=== PATIENT | female | born 1990 | race Caucasian/White ===

== ENCOUNTER 2022-03-09 00:38 | Emergency (ER) | payer OTHER ==
[2022-03-09 01:13] LABS: BILIRUBIN,URINE 1+ (NEGATIVE); CLARITY,URINE CLEAR; COLOR,URINE YELLOW; GLUCOSE, URINE (UA) NEGATIVE (NEGATIVE); KETONES,URINE TRACE (NEGATIVE); LEUKOCYTE ESTERASE ,URINE TRACE (NEGATIVE); NITRITE,URINE NEGATIVE (NEGATIVE); PH,URINE 6.5 (5-9); PROTEIN,URINE TRACE (NEGATIVE)
--- NOTE | 2022-03-09 01:13 | ED General ---
General Chief Complaint: Dizziness/Syncope Stated Complaint: PASSED OUT TWICE WHILE TAKING SHOWER Nursing Triage Note: PT AMB TO [facility] 7 WITH SPOUSE WITH C/O SYNCOPAL EPSISODE X2 ABOUT 45 MIN AGO WHILE TAKING A SHOWER. PT STATES SHE STARTED GAGGING AND FEELING NAUSOUS AND WEAK AND HE TOOK HER TO THE BEDROOM. PT STATES SHE NEVER FULLY BLACKED OUT Source of Information: Patient, Spouse (TRIES TO DO ALL TALKING FOR PT) History of Present Illness Date Seen by Provider: Mar 09, 2022 Time Seen by Provider: 00:53 Initial Comments PT ARRIVES VIA POV FROM HOME IN [place] WITH PT AND WERE IN SHOWER AND SHE PASSED OUT OR ALMOST PASSED OUT TWICE--BACK TO BACK- HE CAUGHT HER, NO INJURY BRIEF DIZZINESS AND NAUSEA IMMEDIATELY BEFORE IT HAPPENED PT SAT DOWN, DRANK WATER AND ATE JELLY FELT FINE AFTER SHE SAT DOWN AND FEELS FINE NOW NO HISTORY OF SIMILAR NO CHEST PAIN NO PALPITATIONS NO SHORTNESS OF BREATH NO VOMITING OR DIARRHEA NO ABDOMINAL PAIN NO HEADACHE NO PARESTHESIAS OR MOTOR DEFICITS NO PAIN ANYWHERE NO FEVER OR RECENT ILLNESS, NO COUGH, ETC. PT HAS MORBID OBESITY AND PCOS AND ELEVATED BLOOD SUGAR HAS GLUCOMETER AT HOME AND CHECKED IT 3 TIMES--126, 129 AND 130 WERE READINGS. PT HAS HAD GASTRIC SLEEVE SURGERY 11/2018 PT WAS STARTED ON [place] 1 MONTH AGO FOR PCOS AND ELEVATED GLUCOSE STATES SHE HAS LOST 30 LBS IN THE LAST MONTH HER ONLY INTAKE TODAY HAS BEEN: 2 SLICES OF FELIZ FOR BREAKFAST FEW BITES OF GROUND BEEF AND RICE FOR LUNCH 1/2 SLICE PIZZA FOR DINNER AROUND 2100 HAS BEEN DRINKING WATER TODAY VOIDING NORMALLY AND NO DIFFICULTY URINATING. LMP--2020. NO CONTROL. HAS NOT DONE ANY HOME TESTS. STATES SHE RARELY HAS PERIODS DUE TO PCOS PCP:DR. MARSHALL Allergies and Home Medications Allergies Coded Allergies: No Known Drug Allergies (Unverified , 03/09/22) Review of Systems Review of Systems Constitutional: see HPI EENTM: no symptoms reported Respiratory: no symptoms reported Cardiovascular: no symptoms reported Gastrointestinal: see HPI Genitourinary: no symptoms reported Musculoskeletal: no symptoms reported Skin: no symptoms reported Psychiatric/Neurological: No Symptoms Reported Hematologic/Lymphatic: No Symptoms Reported Immunological/Allergic: no symptoms reported Past Rwjixlc-[id number]-Xtahcm Hx Patient Social History Tobacco Use?: No Substance use?: No Alcohol Use?: Yes Alcohol type: Wine Alcohol Frequency: Rarely Pt feels they are or have been: No Immunizations Up To Date First/Initial COVID19 Vaccinat: JANUARY 2021 Second COVID19 Vaccination Michael: MARCH 2021 COVID19 Vaccine Motor And Chassis Inspector: SUMANTH Past Medical History Surgery/Hospitalization HX: PCOS Surgeries: Yes (GASTRIC SLEEVE 11/2018) Abdominal, Appendectomy Respiratory: No Cardiac: No Neurological: No : No Reproductive Disorders: Yes Female Reproductive Disorders: Menstrual Problems, Polycystic Ovarian Dis Genitourinary: No Gastrointestinal: No (S/P APPY AND GASTRIC SLEEVE) Musculoskeletal: No Endocrine: Yes (MORBID OBESITY, PCOS WITH ELEVATED BLOOD SUGAR) HEENT: No Cancer: No Psychosocial: No Integumentary: No Blood Disorders: No Physical Exam Vital Signs Vital Signs - First Documented 03/09/22 00:54 Temp 37.0 Pulse 87 Resp 18 B/P (MAP) 120/83 (95) Capillary Refill : Height, Weight, BMI Height: '" Weight: lbs. oz. kg; BMI Method: General Appearance: No Apparent Distress, WD/WN, Other (SITTING UP SMILING, DOES NOT APPEAR ILL OR TO BE IN ANY DISCOMFORT OR DISTRESS) HEENT: Normal ENT Inspection Neck: Normal Inspection Respiratory: Normal Breath Sounds, No Accessory Muscle Use, No Respiratory Distress Cardiovascular: Regular Rate, Rhythm, No Edema, No Murmur Back: No CVA Tenderness Extremity: Normal Inspection Neurologic/Psychiatric: Alert, Oriented x3, No Motor/Sensory Deficits, Normal Mood/Affect, career and guidance counselor II-XII Norm as Tested; No Abnormal Cerebellar Tests Skin: Normal Color, Warm/Dry, Tattoos/Piercings Progress/Results/Core Measures Suspected Sepsis SIRS Temperature: Pulse: 87 Respiratory Rate: 18 Laboratory Tests 03/09/22 01:15: White Blood Count 7.5 Blood Pressure 120 /83 Mean: 95 Laboratory Tests 03/09/22 01:15: Creatinine 0.76, Platelet Count 215, Total Bilirubin 0.5 Results/Orders Lab Results Laboratory Tests Test 03/09/22 00:49 03/09/22 01:05 03/09/22 01:15 Range/Units Glucometer 123 H 70-110 MG/DL Urine Color YELLOW Urine Clarity CLEAR Urine pH 6.5 5-9 Urine Specific [place] 1.020 1.016-1.022 Urine Protein TRACE H NEGATIVE Urine Glucose (UA) NEGATIVE NEGATIVE Urine Ketones TRACE H NEGATIVE Urine Nitrite NEGATIVE NEGATIVE Urine Bilirubin 1+ H NEGATIVE Urine Urobilinogen >=8.0 < = 1.0 MG/DL Urine Leukocyte Esterase TRACE H NEGATIVE Urine RBC (Auto) NEGATIVE NEGATIVE Urine RBC 2-5 H /HPF Urine WBC 5-10 H /HPF Urine Squamous Epithelial Cells 0-2 /HPF Urine Crystals NONE /LPF Urine Bacteria MODERATE H /HPF Urine Casts NONE /LPF Urine Mucus SMALL H /LPF Urine Culture Indicated YES Urine Opiates Screen NEGATIVE NEGATIVE Urine Oxycodone Screen NEGATIVE NEGATIVE Urine Methadone Screen NEGATIVE NEGATIVE Urine Propoxyphene Screen NEGATIVE NEGATIVE Urine Barbiturates Screen NEGATIVE NEGATIVE Ur Tricyclic Antidepressants Screen NEGATIVE NEGATIVE Urine Phencyclidine Screen NEGATIVE NEGATIVE Urine Amphetamines Screen NEGATIVE NEGATIVE Urine Methamphetamines Screen NEGATIVE NEGATIVE Urine Benzodiazepines Screen NEGATIVE NEGATIVE Urine Cocaine Screen NEGATIVE NEGATIVE Urine Cannabinoids Screen NEGATIVE NEGATIVE White Blood Count 7.5 4.3-11.0 10^3/uL Red Blood Count 4.39 3.80-5.11 10^6/uL Hemoglobin 13.8 11.5-16.0 g/dL Hematocrit 41 35-52 % Mean Corpuscular Volume 92 80-99 fL Mean Corpuscular Hemoglobin 31 25-34 pg Mean Corpuscular Hemoglobin Concent 34 32-36 g/dL Red Cell Distribution Width 11.8 10.0-14.5 % Platelet Count 215 130-400 10^3/uL Mean Platelet Volume 11.4 9.0-12.2 fL Immature Granulocyte % (Auto) 0 % Neutrophils (%) (Auto) 62 42-75 % Lymphocytes (%) (Auto) 30 12-44 % Monocytes (%) (Auto) 6 0-12 % Eosinophils (%) (Auto) 2 0-10 % Basophils (%) (Auto) 1 0-10 % Neutrophils # (Auto) 4.6 1.8-7.8 10^3/uL Lymphocytes # (Auto) 2.2 1.0-4.0 10^3/uL Monocytes # (Auto) 0.5 0.0-1.0 10^3/uL Eosinophils # (Auto) 0.1 0.0-0.3 10^3/uL Basophils # (Auto) 0.0 0.0-0.1 10^3/uL Immature Granulocyte # (Auto) 0.0 0.0-0.1 10^3/uL Sodium Level 140 135-145 MMOL/L Potassium Level 3.8 3.6-5.0 MMOL/L Chloride Level 104 98-107 MMOL/L Carbon Dioxide Level 23 21-32 MMOL/L Anion Gap 13 5-14 MMOL/L Blood Urea Nitrogen 11 7-18 MG/DL Creatinine 0.76 0.60-1.30 MG/DL Estimat Glomerular Filtration Rate 109 BUN/Creatinine Ratio 14 Glucose Level 113 H 70-105 MG/DL Calcium Level 9.6 8.5-10.1 MG/DL Corrected Calcium 9.2 8.5-10.1 MG/DL Magnesium Level 2.1 1.6-2.4 MG/DL Total Bilirubin 0.5 0.1-1.0 MG/DL Aspartate Amino Transf (AST/SGOT) 43 H 5-34 U/L Alanine Aminotransferase (ALT/SGPT) 52 0-55 U/L Alkaline Phosphatase 55 40-136 U/L Troponin I < 0.028 <0.028 NG/ML Total Protein 7.4 6.4-8.2 GM/DL Albumin 4.5 3.2-4.5 GM/DL TSH [facility] Testing 2.05 0.35-4.94 UIU/ML Serum Test, Qualitative NEGATIVE NEGATIVE My Orders Orders - FLAKITA FELTON DO Ed Iv/Invasive Line Start (03/09/22 00:53) Ekg Tracing (03/09/22 00:53) Monitor-Rhythm Ecg Trace Only (03/09/22 00:53) Orthostatic Vital Signs (Adult (03/09/22 00:53) Cbc With Automated Diff (03/09/22 00:53) Comprehensive Metabolic Panel (03/09/22 00:53) Drug Screen Stat (Urine) (03/09/22 00:53) Hcg,Qualitative Serum (03/09/22 00:53) Magnesium (03/09/22 00:53) Thyroid Analyzer (03/09/22 00:53) Ua Culture If Indicated (03/09/22 00:53) Troponin I Chan (03/09/22 00:53) Ed Iv/Invasive Line Start (03/09/22 00:53) Ed Iv/Invasive Line Start (03/09/22 01:41) Lactated Ringers (Lr 1000 Ml Iv Solution (03/09/22 01:45) Urine Culture (03/09/22 01:05) Medications Given in ED Current Medications Medications Dose Ordered Sig/Thor Route Start Time Stop Time Status Last Admin Dose Admin Lactated Ringer's 1,000 ml @ 0 mls/hr Q0M ONCE IV 03/09/22 01:45 03/09/22 01:46 DC 03/09/22 01:53 999 MLS/HR Vital Signs/I&O 03/09/22 03/09/22 00:54 01:34 Temp 37.0 Pulse 87 68 73 84 Resp 18 B/P (MAP) 120/83 (95) 124/79 (94) 107/76 (86) 106/80 (89) Capillary Refill : Blood Pressure Mean: 95 Progress Note : Progress Note ORTHOSTATICS, MILDLY ABNORMAL. PT WAS NOT SYMPTOMATIC GIVEN IV FLUIDS UNEVENTFUL ER STAY Departure Impression Primary Impression: Near syncope Additional Impressions: Volume depletion MINIMAL FOOD INTAKE RECENT INTENTIONAL WEIGHT LOSS UTI (urinary tract infection) Disposition: HOME, SELF-CARE Condition: Stable Departure-Patient Inst. Decision time for Depature: 02:06 Referrals: RAAD MARSHALL MD (PCP/Family) Primary Care Physician Patient Instructions: Syncope (Fainting) (DC), Urinary Tract Infection, Adult ED, Near Fainting (DC), Dehydration, Adult (DC) Add. Discharge Instructions: INCREASE YOUR FLUID INTAKE, INCLUDING ELECTROLYTES INCREASE YOUR PROTEIN INTAKE, AND HAVE A HIGH PROTEIN SNACK BEFORE BEDTIME FOLLOW UP WITH YOUR DR THIS WEEK FOR FURTHER CARE RETURN TO ER IF WORSE All discharge instructions reviewed with patient and/or family. Voiced understanding. Scripts Nitrofurantoin Monohyd/M-Cryst (Macrobid 100 mg Capsule) 100 Mg Capsule 1 TAB PO BID, #20 CAP Prov: FLAKITA FELTON DO 03/09/22 FLAKITA FELTON DO Mar 09, 2022 01:13
[2022-03-09 01:21] LABS: BASOPHILS % (AUTO) 1 % (0-10); EOSINOPHILS # (AUTO) 0.1 10^3/uL (0.0-0.3); EOSINOPHILS % (AUTO) 2 % (0-10); HEMATOCRIT 41 % (35-52); HEMOGLOBIN 13.8 g/dL (11.5-16.0); LYMPHOCYTES # (AUTO) 2.2 10^3/uL (1.0-4.0); LYMPHOCYTES % (AUTO) 30 % (12-44); MEAN CORPUSCULAR HEMOGLOBIN 31 pg (25-34); MEAN CORPUSCULAR HGB CONC 34 g/dL (32-36); MEAN CORPUSCULAR VOLUME 92 fL (80-99); MEAN PLATELET VOLUME 11.4 fL (9.0-12.2); MONOCYTES # (AUTO) 0.5 10^3/uL (0.0-1.0); MONOCYTES % (AUTO) 6 % (0-12); NEUTROPHILS # (AUTO) 4.6 10^3/uL (1.8-7.8); NEUTROPHILS % (AUTO) 62 % (42-75); PLATELET COUNT 215 10^3/uL (130-400); WHITE BLOOD COUNT 7.5 10^3/uL (4.3-11.0)
[2022-03-09 01:34] VITALS: BP_SYST 106; BP_SYST 107; BP_SYST 124; BP_DIAS 76; BP_DIAS 79; BP_DIAS 80
[2022-03-09 01:34] LABS: ALBUMIN 4.5 GM/DL (3.2-4.5); CHLORIDE 104 MMOL/L (98-107); POTASSIUM 3.8 MMOL/L (3.6-5.0); SODIUM 140 MMOL/L (135-145)
[2022-03-09 01:35] LABS: CALCIUM 9.6 MG/DL (8.5-10.1)
[2022-03-09 01:36] LABS: GLUCOSE 113 MG/DL (70-105)
[2022-03-09 01:37] LABS: TOTAL PROTEIN 7.4 GM/DL (6.4-8.2)
[2022-03-09 01:38] LABS: BILIRUBIN,TOTAL 0.5 MG/DL (0.1-1.0); CARBON DIOXIDE 23 MMOL/L (21-32)
[2022-03-09 01:39] LABS: AMPHETAMINE SCREEN, URINE NEGATIVE (NEGATIVE); BARBITURATE SCREEN URINE NEGATIVE (NEGATIVE); BENZODIAZEPINES SCREEN URINE NEGATIVE (NEGATIVE); CANNABINOID SCREEN, URINE NEGATIVE (NEGATIVE); COCAINE SCREEN URINE NEGATIVE (NEGATIVE); METHADONE STAT NEGATIVE (NEGATIVE); METHAMPHETAMINE SCREEN URINE S NEGATIVE (NEGATIVE); OPIATE SCREEN URINE NEGATIVE (NEGATIVE); OXYCODONE STAT NEGATIVE (NEGATIVE); PROPOXYPHENE STAT NEGATIVE (NEGATIVE); TRICYCLIC ANTIDEPRESSANTS SCRE NEGATIVE (NEGATIVE)
[2022-03-09 01:40] LABS: ALKALINE PHOSPHATASE 55 U/L (40-136); CREATININE SERUM 0.76 MG/DL (0.60-1.30); GFR ESTIMATED 109
[2022-03-09 01:41] LABS: BUN/CREATININE RATIO 14
[2022-03-09 01:43] LABS: ALANINE AMINOTRANSFERASE 52 U/L (0-55); MAGNESIUM 2.1 MG/DL (1.6-2.4)
[2022-03-09] MEDS ORDERED: LACTATED RINGERS 1,000 ML IV ONE (01:45)
[2022-03-09 01:53] LABS: BACTERIA,URINE MODERATE /HPF; SQUAMOUS EPITHELIAL CELL,UR 0-2 /HPF
[2022-03-09 02:05] LABS: TSH (THYROID ANALYZER) 2.05 UIU/ML (0.35-4.94)
[2022-03-09] MEDS ORDERED: NITR-65 PO (02:14)
[2022-03-09 02:43] VITALS: BP 115/77
== END 2022-03-09 02:46 | disposition home or self-care (01) ==
LOC: ER 00:43
DX: R55 Syncope and collapse (principal); E86.9 Volume depletion, unspecified; R63.8 Other symptoms and signs concerning food and fluid intake; R63.4 Abnormal weight loss; N39.0 Urinary tract infection, site not specified
CPT/HCPCS: 36415; 80053; 80306; 81000; 82947; 83735; 84443; 84484; 84703; 85025; 87088; 93005; 93041